=== PATIENT | female | born 1970 | race American Indian/Alaskan Native ===

== ENCOUNTER 2020-07-25 18:43 | Emergency (ER) | payer SELFPAY ==
--- NOTE | 2020-07-25 19:33 | Event Note ---
ED Screening Note ED Screening Note: pain under left breast for 2 weeks intermittent states she has a hx of GERD states she takes protonix daily states she does have a GI doctor no radiation of the pain states it is sharp pain states when she moves the arm over the head it is worse no n/v/d no fever no cough no SOB PMHx bronchitis, GERD, HTN, HLD, arthritis +Tobacco takes low dose aspirin daily never had stress test This initial assessment/diagnostic orders/clinical plan/treatment(s) is/are subject to change based on patients health status, clinical progression and re- assessment by fellow clinical providers in the ED. Further treatment and workup at subsequent clinical providers discretion. Patient/guardian urged not to elope from the ED as their condition may be serious if not clinically assessed and managed. Initial orders include: CP protocol
[2020-07-25 20:04] LABS: Hematocrit 42.4 % (30.3-42.9); Hemoglobin 14.1 gm/dl (10.1-14.3); Mean Corpuscular HGB Conc 33 % (30-34); Mean Corpuscular Volume 86 fl (79-97); Platelet Count 364 K/mm3 (140-440); Red Blood Count 4.93 M/mm3 (3.65-5.03); Red Cell Distribution Width 14.5 % (13.2-15.2)
--- NOTE | 2020-07-25 20:10 | XRay Report ---
CHEST PA AND LATERAL VIEWS INDICATION: Chest Pain. COMPARISON: None. FINDINGS: Support devices: None. Heart: Within normal limits. Lungs/Pleura: No acute pulmonary or pleural findings. IMPRESSION: 1. No acute findings. Signer Name: Finn Brice MD Signed: 07/25/2020 8:05 PM Workstation Name: [id number]
--- NOTE | 2020-07-25 20:14 | Emergency Department Report ---
ED Chest Pain HPI - General Chief Complaint: Chest Pain Stated Complaint: CP OFF AND ON X 2WKS Time Seen by Provider: 07/25/20 19:30 Source: patient Mode of arrival: Ambulatory Limitations: No Limitations - History of Present Illness Initial Comments: 58-year-old female, history of hypertension, GERD, presents to ED with chest pain. Patient experiencing chest pain, intermittent, for approximately 2 weeks. Pain is nonexertional. Patient states pain is located on the left side, underneath her left breast. States pain is sharp, usually lasts for ap proximately 60 seconds and then resolves. Pain is nonradiating. She denies any associated nausea, vomiting, diaphoresis, shortness of breath, cough, or fever. Patient denies any leg pain or swelling. Patient denies any pleuritic component of the pain. Patient reports tobacco use. MD Complaint: chest pain -: week(s) (2) Onset: during rest Pain Location: left chest Pain Radiation: none Severity: moderate Quality: sharp Consistency: intermittent Improves With: nothing Worsens With: nothing re: denies: nausea, vomting, diaphoresis, dyspnea Other Symptoms: denies: cough, fever, leg swelling Treatments Prior to Arrival: none - Related Data Home Medications Medication Instructions Recorded Confirmed Last Taken Aspirin BABY CHEW TAB 07/25/20 07/25/20 UNKNOWN AtorvaSTATin 07/25/20 07/25/20 unknown Indomethacin 07/25/20 07/25/20 unknown Protonix 07/25/20 07/25/20 unknown ZyrTEC 10mg cap 07/25/20 07/25/20 unknown amLODIPine 07/25/20 07/25/20 UNKNOWN Allergies Allergy/AdvReac Type Severity Reaction Status Date / Time No Known Allergies Allergy Unverified 07/25/20 19:27 Heart Score - HEART Score History: Slightly suspicious EKG: Normal Age: 45-65 Risk factors: 1-2 risk factors Troponin: < normal limit HEART Score: 2 ED Review of Systems ROS: Stated complaint: CP OFF AND ON X 2WKS Other details as noted in HPI Comment: All other systems reviewed and negative Constitutional: denies: chills, fever Respiratory: denies: cough, shortness of breath Cardiovascular: chest pain Gastrointestinal: denies: nausea, vomiting Musculoskeletal: other (Denies leg pain or swelling) ED Past Medical Hx - Past Medical History Previous Medical History?: Yes Hx Hypertension: Yes Additional medical history: hyperlipidemia. "sinus problems" - Surgical History Hx Cholecystectomy: Yes Additional Surgical History: "pins and rods in R lower leg" - Medications Home Medications: Home Medications Medication Instructions Recorded Confirmed Last Taken Type Aspirin BABY CHEW TAB 07/25/20 07/25/20 History UNKNOWN AtorvaSTATin 07/25/20 07/25/20 History unknown Indomethacin 07/25/20 07/25/20 History unknown Protonix 07/25/20 07/25/20 History unknown ZyrTEC 10mg cap 07/25/20 07/25/20 History unknown amLODIPine 07/25/20 07/25/20 History UNKNOWN ED Physical Exam - General Limitations: No Limitations General appearance: alert, in no apparent distress - Head Head exam: Present: atraumatic, normocephalic - Eye Eye exam: Present: normal appearance, EOMI - ENT ENT exam: Present: mucous membranes moist - Neck Neck exam: Present: normal inspection - Respiratory Respiratory exam: Present: normal lung sounds bilaterally. Absent: respiratory distress - Cardiovascular Cardiovascular Exam: Present: regular rate, normal rhythm - GI/Abdominal GI/Abdominal exam: Present: soft. Absent: distended, tenderness - Extremities Exam Extremities exam: Present: normal inspection. Absent: pedal edema, calf tenderness - Neurological Exam Neurological exam: Present: alert, oriented X3 - Psychiatric Psychiatric exam: Present: normal affect, normal mood - Skin Skin exam: Present: warm, dry, intact, normal color ED Course Vital Signs 07/25/20 07/25/20 07/25/20 20:01 20:15 20:17 Pulse Rate 84 78 78 Respiratory 17 18 17 Rate Blood Pressure 135/62 Blood Pressure 144/57 [Left] O2 Sat by Pulse 100 100 100 Oximetry 07/25/20 07/25/20 07/25/20 20:31 20:45 21:00 Pulse Rate 78 77 79 Respiratory 16 12 15 Rate Blood Pressure 140/53 140/53 132/62 Blood Pressure [Left] O2 Sat by Pulse 100 100 100 Oximetry 07/25/20 07/25/20 07/25/20 21:15 21:31 21:45 Pulse Rate 75 74 73 Respiratory 13 15 18 Rate Blood Pressure 132/62 129/50 129/50 Blood Pressure [Left] O2 Sat by Pulse 100 100 99 Oximetry 07/25/20 07/25/20 07/25/20 22:00 22:15 22:31 Pulse Rate 74 73 74 Respiratory 18 16 15 Rate Blood Pressure 130/64 130/64 125/93 Blood Pressure [Left] O2 Sat by Pulse 100 100 100 Oximetry 07/25/20 07/25/20 07/25/20 22:45 23:00 23:15 Pulse Rate 70 70 Respiratory 13 16 16 Rate Blood Pressure 122/64 122/55 119/58 Blood Pressure [Left] O2 Sat by Pulse 100 100 97 Oximetry 07/25/20 07/26/20 23:31 00:22 Pulse Rate 73 Respiratory 16 16 Rate Blood Pressure 131/48 Blood Pressure [Left] O2 Sat by Pulse Oximetry ED Medical Decision Making - Lab Data Result diagrams: 07/25/20 19:38 07/25/20 19:38 - EKG Data -: EKG Interpreted by Me EKG shows normal: sinus rhythm, axis, intervals, QRS complexes, ST-T waves Rate: normal - EKG Data Interpretation: no acute changes - Radiology Data Radiology results: report reviewed, image reviewed - Medical Decision Making 50-year-old female presents to ED with intermittent chest pain x2 weeks. EKG unremarkable. Troponin negative x2. Chest x-ray normal. Will discharge home at this time. Patient's information faxed to [facility] for urgent cardiology f/u. Return precautions given. - Differential Diagnosis GERD, ACS, pneumonia Critical care attestation.: If time is entered above; I have spent that time in minutes in the direct care of this critically ill patient, excluding procedure time. ED Disposition Clinical Impression: Chest pain Disposition: DC-01 TO HOME OR SELFCARE Is pt being admited?: No Condition: Stable Instructions: Nonspecific Chest Pain, Adult, Chest Pain (ED) Referrals: CARYL BOWDEN MD [Primary Care Provider] - 3-5 Days [facility] [Provider Group] - 3-5 Days EDUARDO MENESES MD [Staff Physician] - 3-5 Days Time of Disposition: 23:26
[2020-07-25 20:28] LABS: Alanine Aminotransferase 11 units/L (7-56); Albumin 4.2 g/dL (3.9-5); Blood Urea Nitrogen 7 mg/dL (7-17); Calcium 8.7 mg/dL (8.4-10.2); Hemolysis Index 51
[2020-07-25 20:31] LABS: BUN/Creatinine Ratio 12
[2020-07-25 20:42] LABS: RBC Morphology Normal; Total Cells Counted 100
[2020-07-25] MEDS ORDERED: LIDOCAINE VISCOUS 2% 15 ML ORAL LIQD PO ONE (23:23)
[2020-07-25] MEDS ORDERED: ALUM-MAG HYDROXIDE-SIMETHICONE 200-200-20MG/5ML ORAL LIQD 30 ML PO ONE (23:23)
[2020-07-25 23:41] VITALS: BP 131/48
== END 2020-07-25 23:50 | disposition home or self-care (01) ==
LOC: ED 18:43
DX: R07.9 Chest pain, unspecified (principal); I10 Essential (primary) hypertension; K21.9 Gastro-esophageal reflux disease without esophagitis; E78.5 Hyperlipidemia, unspecified; Z90.49 Acquired absence of other specified parts of digestive tract; Z98.890 Other specified postprocedural states; Z79.899 Other long term (current) drug therapy
CPT/HCPCS: 36415; 71046; 80053; 84484; 85007; 85025; 93005

== ENCOUNTER 2020-12-15 00:35 | Emergency (ER) | payer MEDICAID ==
[2020-12-15 01:26] VITALS: BP 158/87
[2020-12-15 01:53] LABS: Hematocrit 37.6 % (30.3-42.9); Hemoglobin 12.7 gm/dl (10.1-14.3); Mean Corpuscular HGB Conc 34 % (30-34); Mean Corpuscular Volume 84 fl (79-97); Platelet Count 314 K/mm3 (140-440); Red Blood Count 4.48 M/mm3 (3.65-5.03); Red Cell Distribution Width 13.7 % (13.2-15.2)
[2020-12-15 02:11] LABS: Bilirubin,Urine NEG (Negative); Blood,Urine NEG (Negative); Color,Urine Yellow (Yellow); Mucus,Urine FEW /HPF; Protein,Urine <15 mg/dL mg/dL (Negative); RBC,Urine < 1.0 /HPF (0.0-6.0); Urobilinogen,Urine < 2.0 mg/dL (<2.0)
[2020-12-15 02:18] LABS: Alanine Aminotransferase 11 units/L (7-56); Albumin 4.2 g/dL (3.9-5); Blood Urea Nitrogen 7 mg/dL (7-17); Calcium 9.3 mg/dL (8.4-10.2); Hemolysis Index 9
[2020-12-15 02:32] LABS: BUN/Creatinine Ratio 12
[2020-12-15 03:24] LABS: RBC Morphology Normal; Total Cells Counted 100
[2020-12-15 03:25] LABS: Large Platelets Rare; Platelet Estimate Cons
== END 2020-12-15 01:45 | disposition left against medical advice (07) ==
LOC: ED 00:35
DX: R11.2 Nausea with vomiting, unspecified (principal); Z53.21 Procedure and treatment not carried out due to patient leaving prior to being seen by health care provider
CPT/HCPCS: 36415; 80053; 81001; 83690; 85007; 85025

== ENCOUNTER 2021-11-16 13:02 | Emergency (ER) | payer MEDICAID ==
[2021-11-16 13:21] VITALS: BP 140/97
== END 2021-11-17 01:34 | disposition left against medical advice (07) ==
LOC: ED 13:02
DX: R07.9 Chest pain, unspecified (principal); Z53.21 Procedure and treatment not carried out due to patient leaving prior to being seen by health care provider
CPT/HCPCS: 93005